=== PATIENT | female | born 1955 | race Caucasian/White ===

== ENCOUNTER 2016-03-31 08:25 | Outpatient (CLI) | payer OTHER | END 2016-03-31 08:26 | disposition home or self-care (01) | DX: Z12.11 Encounter for screening for malignant neoplasm of colon (principal); R10.9 Unspecified abdominal pain; K62.5 Hemorrhage of anus and rectum; N02.9 Recurrent and persistent hematuria with unspecified morphologic changes ==

== ENCOUNTER 2016-03-31 11:19 | Outpatient (CLI) | payer OTHER | END 2016-03-31 11:20 | disposition home or self-care (01) | DX: R53.83 Other fatigue (principal); E78.5 Hyperlipidemia, unspecified; E03.9 Hypothyroidism, unspecified ==

== ENCOUNTER 2017-05-02 14:04 | Outpatient (CLI) | payer SELFPAY ==
[2017-05-02 18:29] LABS: FREE T4 (FREE THYROXINE) 0.27 ng/dL (0.58-1.64)
[2017-05-02 19:33] LABS: THYROID STIMULATING HORMONE 143.61 uIU/mL (0.34-5.60)
== END 2017-05-02 14:05 | disposition home or self-care (01) ==
LOC: LAB.F 14:04
PROVIDERS: ATTEND Naturopath
DX: E03.8 Other specified hypothyroidism (principal)
CPT/HCPCS: 36415; 84439; 84443; 84481